=== PATIENT | male | born 1945 | race Caucasian/White ===

== ENCOUNTER → 2016-08-05 | Outpatient (CLI) | payer MEDICARE, BC ==
--- NOTE | 2016-08-05 11:09 | Diagnostic Imaging Report ---
INDICATION: Pain and swelling x1 month COMPARISON: None. FINDINGS: 3 views of the right foot demonstrate no acute fracture or dislocation. Note is made of moderate degenerative changes at the first metatarsophalangeal joint space. Joint spaces are otherwise well-maintained. There are no focal osseous lesions. There is no soft tissue swelling. No radiopaque foreign bodies are seen. IMPRESSION: 1. No acute fractures or dislocations of the right foot. 2. 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 Dictated by: Dictated on workstation # [id number]
== END ==
LOC: RAD 10:18
PROVIDERS: ATTEND Family Medicine
DX: M79.671 Pain in right foot (principal)

== ENCOUNTER → 2016-08-05 | Outpatient (REF) | payer MEDICARE, BC ==
[2016-08-05 10:10] LABS: BILIRUBIN,URINE Negative (Negative); CLARITY,URINE Clear; COLOR,URINE Yellow; GLUCOSE, URINE (UA) Negative (Negative); LEUKOCYTE ESTERASE ,URINE Negative (Negative); UROBILINOGEN,URINE 0.2 mg/dL (0.2-1.0)
[2016-08-05 10:18] LABS: BASOPHILS % (AUTO) 0 % (0-2); EOSINOPHILS # (AUTO) 0.1 10^3uL; EOSINOPHILS % (AUTO) 2 % (0-4); LYMPHOCYTES # (AUTO) 1.3 X10^3; MEAN CORPUSCULAR HEMOGLOBIN 30.3 PG (26.0-34.0); MEAN CORPUSCULAR HGB CONC 34.4 g/dL (31.0-37.0); MEAN CORPUSCULAR VOLUME 88 FL (80-100); MEAN PLATELET VOLUME 10.4 FL (6.0-9.5); MONOCYTES # (AUTO) 0.6 X10^3; MONOCYTES % (AUTO) 12 % (3-11); NEUTROPHILS # (AUTO) 3.2 X10^3; NEUTROPHILS % (AUTO) 61 % (51-67); PLATELET COUNT 172 10^3uL (150-450); WHITE BLOOD COUNT 5.26 10^3uL (4.0-11.0)
[2016-08-05 10:20] LABS: ALBUMIN 4.2 g/dL (3.4-5.0); ANION GAP 14.1 MEQ/L (3-15); CALCULATED IONIZED CALCIUM 4.4 mg/dL (3.8-4.6); TOTAL PROTEIN 7.2 g/dL (6.4-8.5)
== END ==
LOC: LAB 09:48
PROVIDERS: ATTEND Family Medicine
DX: E03.8 Other specified hypothyroidism (principal); N40.0 Benign prostatic hyperplasia without lower urinary tract symptoms; Z91.89 Other specified personal risk factors, not elsewhere classified
CPT/HCPCS: 80053; 80061; 81003; 84443; 85025